=== PATIENT | female | born 1955 | race Caucasian/White ===

== ENCOUNTER 2016-08-26 10:11 | Emergency (ER) | payer BC ==
[2016-08-26] MEDS ORDERED: Morphine INJ* 4 MG/ML 1 ML SYRINGE IV ONE ×2 (10:20→11:38)
[2016-08-26] MEDS ORDERED: NS 0.9% 1000 ML* 1,000 ML IV ONE (10:20)
[2016-08-26] MEDS ORDERED: Ondansetron INJ* 2 MG/ML VIAL IV ONE (10:20)
[2016-08-26] MEDS ORDERED: NS 0.9% 1000 ML* 1,000 ML IV SCH (10:30)
--- NOTE | 2016-08-26 10:42 | ED ---
Upper Extremity Pain - HPI Summary HPI Summary: Patient was working out at [employer] when she miss stepped and fell. She caught herself with her right arm and felt a snap. When she looked at her wrist she saw an obvious deformity with severe pain. She is right hand dominant and denies previous injury to the arm. She has mild altered sensation and feels that her muscles are spasming. - History of Current Complaint Chief Complaint: EDExtremityUpper Stated Complaint: FALL, RIGHT WRSIT INJURY Time Seen by Provider: 08/26/16 10:24 Hx Obtained From: Patient Mechanism Of Injury: Fall From A Standing Position Onset/Duration: Started Minutes Ago Timing: Constant Severity Initially: Severe Severity Currently: Severe Pain Location: Wrist Aggravating Factor(s): Movement Alleviating Factor(s): Nothing Associated Signs & Symptoms: Positive: Numbness/Tingling - mild, Other - deformity Related History: Dominant Hand Right - Allergies/Home Medications Allergies/Adverse Reactions: Allergies Allergy/AdvReac Type Severity Reaction Status Date / Time No Known Allergies Allergy Verified 05/28/14 10:04 PMH/Surg Hx/FS Hx/Imm Hx Cardiovascular History: Denies: Other Cardiovascular Problems/Disorders Respiratory History: Denies: Other Respiratory Problems/Disorders GI History: Denies: Other GI Disorders Musculoskeletal History: Denies: Other Musculoskeletal History Sensory History: Reports: Hx Contacts or Glasses - GLASSES Denies: Hx Hearing Aid Opthamlomology History: Reports: Hx Contacts or Glasses - GLASSES Neurological History: Reports: Hx Headaches - A CHILD ENCEPHALITIS Denies: Other Neuro Impairments/Disorders - Surgical History Surgery Procedure, Year, and Place: ACL LEFT, [facility], 2001. MCL, RIGHT 2003, [facility]. HERNIA, 2006, [facility]. UMBILICAL HERNIA 1989, [facility] Hx Anesthesia Reactions: No Infectious Disease History: No Infectious Disease History: Denies: Traveled Outside the [place] in Last 30 Days - Family History Known Family History: Positive: None - Social History Occupation: Employed Full-time Lives: With Family Alcohol Use: Occasionally Alcohol Amount: 3-5 PER WEEK Substance Use Type: Reports: None Smoking Status (MU): Never Smoked Tobacco Have You Smoked in the Last Year: No Review of Systems Positive: Arthralgia, Myalgia, Decreased ROM Positive: Paresthesia. Negative: Numbness All Other Systems Reviewed And Are Negative: Yes Physical Exam Triage Information Reviewed: Yes Vital Signs On Initial Exam: Initial Vitals Temp Pulse Resp BP Pulse Ox 97.0 F 86 16 112/62 100 08/26/16 10:13 08/26/16 10:13 08/26/16 10:13 08/26/16 10:13 08/26/16 10:13 Vital Signs Reviewed: Yes Appearance: Positive: Well-Appearing, Well-Nourished, Pain Distress Skin: Positive: Warm, Skin Color Reflects Adequate Perfusion, Dry, Soft Head/Face: Positive: Normal Head/Face Inspection Eyes: Positive: EOMI, MANUEL, Conjunctiva Clear ENT: Positive: Hearing grossly normal Respiratory/Lung Sounds: Positive: Breath Sounds Present Cardiovascular: Positive: RRR Musculoskeletal: Positive: Limited @ - any wrist movement is painful, Pain @ - TTP right forearm and wrist. Neurological: Positive: Sensory/Motor Intact, Alert, Oriented to Person Place, Time, NV Bundle Intact Distally - mildly altered to light touch Psychiatric: Positive: Affect/Mood Appropriate AVPU Assessment: Alert Procedures - Splinting Location: right wrist Hand-Made Type: plaster Splint: sugar-tong - with posterior mold Pre-Proc Neuro Vasc Exam: normal Post-Proc Neuro Vasc Exam: normal - Joint Reduction Joint Reduction Site: wrist (R) Conscious Sedation: No Reduction Attempts: 1 Pre-Procedure NV Exam: Yes Post Joint Reduction Film: joint reduced - with dorsal displacement of the distal radius fragment Diagnostics - Vital Signs Vital Signs Temp Pulse Resp BP Pulse Ox 08/26/16 10:26 44 08/26/16 10:13 97.0 F 86 18 112/62 100 - Laboratory Lab Statement: Any lab studies that have been ordered have been reviewed, and results considered in the medical decision making process. - Radiology No standard instances Xray Interpretation: Positive (See Comments) Radiology Interpretation Completed By: ED Physician - Right comminuted, impacted distal radius fracture with ulna dislocation, Radiologist post-reduction Radiology Interpretation Completed By: ED Physician, Radiologist - Right ulnar reduction with decreased impaction and volar displacement of the distal radius fragment. Re-Evaluation - Re-Evaluation First Eval Re-Evaluation Time: 10:50 Change: Unchanged - continued pain and discomfort Second Eval Re-Evaluation Time: 11:20 Change: Improved Comment: diazepam gave good relief of pain and muscle spasms Third Eval Re-Evaluation Time: 11:50 Change: Improved - reduction of fracture gave increased releif. Course/Dx - Course Course Of Treatment: Dr. Perez came to the ED to evaluate the patient and confirm reduction of joint. Post-reduction films were reviewed and a CT scan was order to assess for intra-articular disruption. Patient will follow-up this week with his office. - Diagnoses Differential Diagnosis/HQI/PQRI: Positive: Arthritis, Bursitis, Fracture (Open) , Fracture (Closed), Laceration, Strain, Sprain Provider Diagnoses: Galeazzi's fracture of right radius - Physician Notifications Discussed Care Of Patient With: Dr. Perez, orthopedic surgery. Time Discussed With Above Provider: 11:05 Instructed by Provider To: Have Pt Call For Appt. Discharge - Discharge Plan Condition: Stable Disposition: HOME Prescriptions: Hydrocodone-Acetaminophen [Sophia 5-325 mg] 2 tab PO Q4H PRN #36 tab MDD 12 PRN Reason: Pain Ondansetron ODT TAB* [Zofran 4 MG Odt TAB*] 4 mg PO Q6H PRN #20 tab.odt PRN Reason: Nausea Patient Education Materials: Wrist Fracture in Adults (ED) Referrals: Yanelis Grant [Primary Care Provider] - Marc Looney MD [Medical Doctor] - Additional Instructions: Please keep your splint clean, dry and intact at all times. Elevate your hand above your heart to reduce swelling in your fingers and wrist. Take ibuprofen 600mg three times daily with meals to decrease swelling and pain as well. Use the pain pill for uncontrolled pain and Zofran for nausea. Call Dr. Schrader's office with orthopedics in the morning for an appointment this week. Return to the emergency department if symptoms worsen.
[2016-08-26] MEDS ORDERED: Diazepam SYRINGE* 5 MG/ML SYRINGE IV ONE (10:44)
--- NOTE | 2016-08-26 11:17 | RAD ---
INDICATION: Right wrist injury. TECHNIQUE: 2 views of the right wrist were obtained. FINDINGS: There is a transverse comminuted fracture of the distal radial metaphysis extending to the distal articular margin. The fragments are overriding and the major distal fragment is displaced posteriorly one shaft diameter and demonstrates posterior angulation relative to the proximal fragment. IMPRESSION: COMMINUTED, DISPLACED, ANGULATED FRACTURE OF THE DISTAL RADIUS.
--- NOTE | 2016-08-26 11:18 | RAD ---
INDICATION: Right forearm injury. TECHNIQUE: 2 views of the right forearm were obtained. FINDINGS: Again note is made of a transverse comminuted fracture of the distal radial metaphysis. The distal fragment is displaced one shaft diameter posterior and demonstrate posterior angulation relative the proximal fragment. There is foreshortening of the wrist. No additional fracture is seen. IMPRESSION: TRANSVERSE, COMMINUTED, DISPLACED, ANGULAR FRACTURE OF THE DISTAL RADIUS.
--- NOTE | 2016-08-26 12:37 | RAD ---
INDICATION: Traumatic fracture of the right wrist status post external reduction. COMPARISON: Comparison is made with a prior x-ray study of the right wrist of the same day. TECHNIQUE: 2 views of the right wrist were obtained. FINDINGS: The patient is status post external reduction. Note is made of a overlying cast limiting some of the bony detail. Again note is made of the transverse comminuted intra-articular fracture of the distal radius. The fracture fragments are impacted with posterior displacement of the distal fragment which appears improved from the prior exam. There is also interval resolution of the previously noted dorsal angulation of the fracture fragments. IMPRESSION: COMMINUTED, DISPLACED, INTRA-ARTICULAR FRACTURE OF THE DISTAL RADIUS STATUS POST EXTERNAL REDUCTION WITH SLIGHT IMPROVEMENT IN ALIGNMENT AND POSITIONING OF THE FRACTURE FRAGMENTS.
[2016-08-26 12:42] VITALS: BP 114/74
--- NOTE | 2016-08-26 13:49 | RAD ---
INDICATION: Traumatic comminuted fracture of the distal radius of the right wrist status post post external reduction. COMPARISON: Comparison is made with a prior x-ray studies of the right wrist of the same day. TECHNIQUE: Contiguous axial sections were obtained of the right wrist. Images were reconstructed in the sagittal and coronal planes. FINDINGS: The patient is status post placement of a plaster cast. Again note is made of a transverse comminuted fracture of the distal radial metaphysis with extension to the distal articular margin. The fracture fragment are impacted. The major distal fragment is displaced approximately 0.7 cm posterior and demonstrates mild posterior angulation relative to the proximal fragment. No additional fractures are seen. There is diffuse soft tissue swelling and a small amount of air present within the dorsal lateral soft tissues. IMPRESSION: TRANSVERSE, COMMINUTED, INTRA-ARTICULAR, DISPLACED, ANGULATED FRACTURE OF THE DISTAL RADIUS DESCRIBED. THERE IS A SMALL AMOUNT OF AIR WITHIN THE SOFT TISSUES ALONG THE DORSAL LATERAL ASPECT OF THE WRIST. RECOMMEND CLINICAL CORRELATION.
== END 2016-08-26 13:38 | disposition home or self-care (01) ==
LOC: ED 10:11
DX: S52.371A Galeazzi's fracture of right radius, initial encounter for closed fracture (principal); W18.09XA Striking against other object with subsequent fall, initial encounter; Y93.B9 Activity, other involving muscle strengthening exercises; Y92.39 Other specified sports and athletic area as the place of occurrence of the external cause
CPT/HCPCS: 96360; 96374; 96375; 99285; J2270; J2405; J3360

== ENCOUNTER 2016-08-30 10:11 | Day surgery (SDC) | payer BC ==
[2016-08-30] MEDS ORDERED: Famotidine IV* 10 MG/ML 2 ML (20 mg) ONE (10:18)
[2016-08-30] MEDS ORDERED: Dexamethasone IV* 4 MG/ML 1 ML (4 MG) ONE (10:18)
[2016-08-30] MEDS ORDERED: ceFAZolin 2 GM PREMIX(*) 2 GM/50 ML BAG IVPB ONE (10:50)
[2016-08-30] MEDS ORDERED: Midazolam* 1 MG/ML 2 ML VIAL (2 MG) ONE (13:47)
[2016-08-30] MEDS ORDERED: fentaNYL* 50 MCG/ML 2 ML VIAL (100 MCG VIAL) ONE (13:47)
[2016-08-30] MEDS ORDERED: ROPIVACAINE 5 MG/ML 30 ML BTL (0.5%) ONE (13:47)
[2016-08-30] MEDS ORDERED: Propofol* 10 MG/ML 20 ML BTL IV PUSH ONE (13:51)
[2016-08-30] MEDS ORDERED: Lidocaine 2% PF * 5 ML VIAL ONE (13:51)
[2016-08-30] MEDS ORDERED: EPHEDrine (Pressors)* 50 MG/ML VIAL ONE (14:29)
[2016-08-30] MEDS ORDERED: HYDROcodone/ACETAMIN 5-325 MG* 1 TAB PO PRN (14:57)
[2016-08-30] MEDS ORDERED: Ketorolac INJ* 30 MG/ML 1 ML VIAL IV PRN (14:57)
[2016-08-30] MEDS ORDERED: PROCHLORPERAZINE INJ 5 MG/ML 2 ML VIAL IV PRN (14:57)
[2016-08-30] MEDS ORDERED: oxyCODONE/Acetamin 5/325 MG* TAB PO PRN (14:57)
[2016-08-30] MEDS ORDERED: fentaNYL* 50 MCG/ML 2 ML VIAL (100 MCG VIAL) IV PRN (14:57)
[2016-08-30] MEDS ORDERED: Ondansetron INJ* 2 MG/ML VIAL ONE (16:02)
[2016-08-30 17:29] VITALS: BP 119/71
--- NOTE | 2016-08-31 07:44 | OP ---
DATE OF OPERATION: 08/30/16 - [facility] DATE OF : 59 SURGEON: Marc Looney MD ARCHITECTURAL REPRESENTATIVE: ALISSA Valentin ANESTHESIOLOGIST: Red Rivera MD ANESTHESIA: General plus supraclavicular block. PRE-OPERATIVE DIAGNOSIS: Right greater than three-part intraarticular distal radius fracture. POST-OPERATIVE DIAGNOSIS: Right greater than three-part intraarticular distal radius fracture. OPERATIVE PROCEDURE: Open reduction and internal fixation, right greater than three-part intraarticular distal radius fracture. INDICATIONS: April is a 61-year-old female who had a fall at the gym and fractured the wrist. She had a closed reduction performed, but the reduction was in not quite good enough alignment. I had spoken with her about the risks and benefits of surgery. She wanted to proceed with open reduction and internal fixation. ESTIMATED BLOOD LOSS: 15 mL. COMPLICATIONS: None. FINDINGS: As expected. DESCRIPTION OF PROCEDURE: April was seen in the preoperative holding area. The correct site, side, and procedure were identified. We came back the operating room where supraclavicular block was placed and anesthesia was induced. The arm was prescrubbed and then prepped and draped in the usual fashion and a formal time- out was performed. The arm was exsanguinated with the Esmarch and the tourniquet inflated to 250 mmHg. I began by making a longitudinal incision along the course of the FCR tendon. At the volar wrist flexion crease, this was taken at a 45-degree angle with just a centimeter past that out towards the thumb. Dissection was carried down to the FCR tendon sheath. This was incised longitudinally. The tendon was retracted ulnarly and the subsheath was divided. Blunt dissection took this down to the FPL, which was retracted ulnarly. The pronator quadratus was visualized and it was released off its radial attachment and then held back distally to expose the fracture and the distal fragment volar cortex. The fracture was mobilized. I used the suction to clean out the fracture hematoma as well as the rongeur. Once I had things clean, I went ahead and performed closed reduction maneuver and had my patient observation assistant drag a 0.062 K-wire through the radial styloid and out the ulnar cortex of the shaft. This did a nice job holding the provisional reduction. I brought in the mini C-arm and checked the alignment. It was not perfect, but it was in acceptable provisional alignment. I therefore put it back down and I brought in initially a regular-size plate with 5 holes distal. I pinned this in place and checked it on the C-arm. It looked too wide and so I took this out and exchanged it for the narrow plate with just 4 holes distal. This was placed in position and pinned in place. As I placed the proximal pin, I had placed a lobster-claw on the shaft proximally and I used this to tweak the reduction to gain a little bit more radial inclination and to translate the shaft just a little bit more radially. With the plate pinned in place, I went ahead and checked the fluoroscopy. Once I was satisfied with the position of the plate, I put one screw through the distal aspect of the oblong hole. I then removed all of the pins and I translated the plate just a millimeter distal and the plate was initially just a bit off rotationally and so I fixed that and then re- secured the screw in the oblong hole. Once I had the plate looking nice on fluoroscopy and the reduction of the fracture looking nice, I went ahead and placed one screw through the distal row and that was a cortical screw to make sure I had good [id number] apposition distally. Once this was in place, I used both the nominal and variable-angle locking guides to place the remainder of the distal row screws and a second more proximal screw through the radial styloid. I then switched out the cortical screw for a locking screw. Once I had the distal row nicely fixed, I checked the fluoroscopy again. I was satisfied with the length and rotation, so I went ahead and placed the 2 additional 2.4 mm cortical screws. Please note that this was all the Synthes variable angle distal radius set. The final fluoroscopic images were taken. I went ahead and irrigated out the wound copiously. The pronator quadratus was repaired with 3-0 Polysorb suture. The subcutaneous tissue was reapproximated with a few 3-0 Polysorb sutures. The skin was then closed with 4-0 nylon suture. The wound was then dressed with Xeroform, 4x4s, sterile Webril, and a volar splint was placed. Tourniquet was deflated and the hand pinked up immediately. The total tourniquet time was 93 minutes. She was then awoken back up and taken to recovery room in stable condition. [id number]/[facility] #: [id number] BERNARD
--- NOTE | 2016-08-31 16:42 | RAD ---
INDICATION: ORIF distal radius fracture. COMPARISON: August 26, 2016 radiographs TECHNIQUE: 1 minute 8 seconds fluoroscopy. FINDINGS: Spot images document placement of a volar cortical plate and multiple fixation screws across the distal radius fracture with gross anatomic alignment resulting. IMPRESSION: Procedural fluoroscopy. CPT II Codes: 6045F
== END 2016-08-30 17:33 | disposition home or self-care (01) ==
LOC: OREAST 10:11
PROVIDERS: ATTEND Orthopaedic Surgery Hand Surgery
DX: S52.571A Other intraarticular fracture of lower end of right radius, initial encounter for closed fracture (principal); W19.XXXA Unspecified fall, initial encounter; Y93.89 Activity, other specified; Y92.39 Other specified sports and athletic area as the place of occurrence of the external cause
CPT/HCPCS: 76000; C1713; C1776; J0690; J1100; J2250; J2405; J2704; J2795; J3010

== ENCOUNTER 2018-07-26 14:06 | Emergency (ER) | payer BC ==
--- NOTE | 2018-07-26 15:10 | ED ---
Upper Extremity Pain - HPI Summary HPI Summary: Patient is a 63-year-old female presenting to the ED with a right base of thumb injury. She states she was cleaning a window when the window came down directly over the base of the first metacarpal. She has recently had wrist surgery, but feels this is not involved. She is able to move about the wrist joint and flex and extend without pain. Pain with thumb opposition. Denies any numbness or tingling. Denies any ecchymosis or erythema. There is signs of trauma to the ulnar side of the hand without evidence of trauma to the thumb. - History of Current Complaint Chief Complaint: EDExtremityUpper Stated Complaint: RIGHT HAND INJ PER PT Time Seen by Provider: 07/26/18 14:17 Hx Obtained From: Patient Mechanism Of Injury: Blunt Trauma Onset/Duration: Started Hours Ago Timing: Constant Severity Initially: Moderate Severity Currently: Moderate Pain Location: Hand Character: Aching Alleviating Factor(s): Nothing Associated Signs & Symptoms: Positive: Bruising. Negative: Weakness, Numbness/ Tingling, Chest Pain Related History: Dominant Hand Right - Risk Factors Non-Orthopedic Risk Factor: Negative DVT Risk Factors: Negative Septic Arthritis Risk Factor: Negative Compartment Syndrome Risk Factors: Pain - Allergies/Home Medications Allergies/Adverse Reactions: Allergies Allergy/AdvReac Type Severity Reaction Status Date / Time No Known Allergies Allergy Verified 07/26/18 14:13 PMH/Surg Hx/FS Hx/Imm Hx Previously Healthy: Yes Cardiovascular History: Denies: Other Cardiovascular Problems/Disorders Respiratory History: Denies: Other Respiratory Problems/Disorders GI History: Denies: Other GI Disorders Musculoskeletal History: Denies: Other Musculoskeletal History Sensory History: Reports: Hx Contacts or Glasses - GLASSES Denies: Hx Hearing Aid Opthamlomology History: Reports: Hx Contacts or Glasses - GLASSES Neurological History: Reports: Hx Headaches - A CHILD ENCEPHALITIS Denies: Other Neuro Impairments/Disorders - Surgical History Surgery Procedure, Year, and Place: ACL LEFT, [facility], 2001. MCL, RIGHT 2003, [facility]. HERNIA, 2006, [facility]. UMBILICAL HERNIA 1989, [facility] Anesthesia Reactions: No - Immunization History Hx Pertussis Vaccination: No Immunizations Up to Date: Yes Infectious Disease History: No Infectious Disease History: Denies: Traveled Outside the [place] in Last 30 Days - Family History Known Family History: Positive: None - Social History Occupation: Employed Full-time Lives: With Family Alcohol Use: None Alcohol Amount: 3-5 PER WEEK Hx Substance Use: No Substance Use Type: Reports: None Hx Tobacco Use: No Smoking Status (MU): Never Smoked Tobacco Have You Smoked in the Last Year: No Review of Systems Constitutional: Negative Negative: Fever, Chills, Fatigue, Skin Diaphoresis Negative: Palpitations, Chest Pain Negative: Shortness Of Breath, Cough Genitourinary: Negative Positive: no symptoms reported, see HPI Positive: Arthralgia - right hand pain - base of R thumb Positive: Bruising - to the ulnar side of hand Neurological: Negative All Other Systems Reviewed And Are Negative: Yes Physical Exam Triage Information Reviewed: Yes Vital Signs On Initial Exam: Initial Vitals Temp Pulse Resp BP Pulse Ox 97.2 F 75 14 125/68 99 07/26/18 14:12 07/26/18 14:12 07/26/18 14:12 07/26/18 14:12 07/26/18 14:12 Vital Signs Reviewed: Yes Appearance: Positive: Well-Appearing, Well-Nourished Skin: Positive: Warm, Skin Color Reflects Adequate Perfusion Head/Face: Positive: Normal Head/Face Inspection Eyes: Positive: EOMI, Conjunctiva Clear Neck: Positive: Supple, No Lymphadenopathy Respiratory/Lung Sounds: Positive: Clear to Auscultation, Breath Sounds Present Cardiovascular: Positive: RRR, Pulses are Symmetrical in both Upper and Lower Extremities Musculoskeletal: Positive: Strength/ROM Intact, Pain @ - thumb opposition intact but with pain Neurological: Positive: Sensory/Motor Intact, Alert, Oriented to Person Place, Time, Speech Normal Psychiatric: Positive: Affect/Mood Appropriate AVPU Assessment: Alert Diagnostics - Vital Signs Vital Signs Temp Pulse Resp BP Pulse Ox 07/26/18 14:12 97.2 F 75 14 125/68 99 - Laboratory Lab Statement: Any lab studies that have been ordered have been reviewed, and results considered in the medical decision making process. Course/Dx - Course Course Of Treatment: During the course treatment, the patient is evaluated for right base of thumb pain. She states a window came down directly over to the thumb and has been hurting ever since. X-ray obtained which shows a slightly displaced fracture. The patient has no complaints of numbness, tingling or ecchymosis to the area. Discussed this with patient. She was placed in a thumb spica splint and will follow-up with orthopedics. She understands return precautions and offers no complains at this time. Pain control was offered to her while in the ED, however she declines. Impression: Transverse slightly angulated fracture at the base of the first metacarpal. - Diagnoses Differential Diagnosis/HQI/PQRI: Positive: Fracture (Open), Fracture (Closed), Strain, Sprain Provider Diagnoses: Metacarpal bone fracture Discharge - Sign-Out/Discharge Documenting (check all that apply): Patient Departure Patient Received Moderate/Deep Sedation with Procedure: No - Discharge Plan Condition: Stable Disposition: HOME Patient Education Materials: Thumb Fracture (ED) Referrals: Corry West MD [Primary Care Provider] - Additional Instructions: Keep splint applied unless washing hands - then remove and reapply gently Tylenol and ibuprofen may be used intermittently for discomfort Ice to the area as much as possible Call Dr. Looney on Saturday morning for an appointment If you develop any worsening symptoms, return to the ED - Billing Disposition and Condition Condition: STABLE Disposition: Home
[2018-07-26 15:54] VITALS: BP 122/74
== END 2018-07-26 15:47 | disposition home or self-care (01) ==
LOC: ED 14:06
DX: S62.231A Other displaced fracture of base of first metacarpal bone, right hand, initial encounter for closed fracture (principal); W20.8XXA Other cause of strike by thrown, projected or falling object, initial encounter
CPT/HCPCS: 99282